=== PATIENT | male | born 1995 | race African-American/Black ===

== ENCOUNTER → 2018-11-12 | Outpatient (CLI) | payer BC ==
[~2018-11-12] MED LIST: HUMALOG100 UNIT/1 SUBQ; LANTUS100 UNIT/M SUBQ
--- NOTE | 2018-11-12 13:00 | 2DMMODE ---
[facility] [place] [address] 2 D/M-MODE ECHOCARDIOGRAM Name: ASHOK CALVERT JR Room #: REG [facility]#: [id number] ������������� Admission: 11/12/18 ������������� Attend Phys: Brannon Vicente Discharge: ��� ������������� ��� Date of : 89 Date of Service: 11/12/18 1300 �� Report #: [id number] �������� ��������������������������������������������[id number] THIS REPORT FOR: //name// APPROVED REPORT Study performed: 11/12/2018 12:29:04 EXAM: Comprehensive 2D, Doppler, and color-flow Echocardiogram Patient Location: Out-Patient Status: routine BSA: 2.06 HR: 91 bpm BP: 126/90 mmHg Rhythm: NSR Other Information Study Quality: Good Indications Palpitations Tachycardia 2D Dimensions RVDd: 32.49 mm IVSd: 10.78 (7-11mm) LVOT Diam: 21.51 (18-24mm) LVDd: 42.06 mm PWd: 10.60 (7-11mm) LVDs: 28.75 (25-40mm) Aortic Root: 33.16 mm Volumes Left Atrial Volume (Systole) Single Plane 4CH: 32.71 mL Single Plane 2CH: 40.40 mL LA ESV Index: 19.00 mL/m2 Aortic Valve AoV Peak Michel.: 1.12 m/s AO Peak Gr.: 5.02 mmHg LVOT Max P.54 mmHg LVOT Max V: 1.07 m/s HONEY Vmax: 3.45 cm2 Mitral Valve E/A Ratio: 0.8 MV Decel. Time: 163.55 ms [facility] [address] [place] [address] 2 D/M-MODE ECHOCARDIOGRAM Name: ASHOK CALVERT JR Room #: REG [facility]#: [id number] ������������� Admission: 11/12/18 ������������� Attend Phys: Brannon Vicente Discharge: ��� ������������� ��� Date of : 89 Date of Service: 11/12/18 1300 �� Report #: [id number] �������� ��������������������������������������������[id number] MV E Max Michel.: 0.61 m/s MV A Michel.: 0.78 m/s MV PHT: 47.43 ms IVRT: 57.67 ms Pulmonary Valve PV Peak Michel.: 1.27 m/s PV Peak Gr.: 6.47 mmHg Tricuspid Valve TR Peak Michel.: 2.21 m/s RAP Estimate: 5.00 mmHg TR Peak Gr.: 19.48 mmHg PA Pressure: 20.00 mmHg Left Ventricle The left ventricle is normal size. Borderline concentric left ventricular hypertrophy. Left ventricular systolic function is normal. LVEF is 65%. Mild diastolic dysfunction is present (impaired relaxation pattern). Right Ventricle The right ventricle is normal size. The right ventricular systolic function is normal. Atria The left atrium size is normal. The right atrium size is normal. Aortic Valve The aortic valve is normal in structure. No aortic regurgitation is present. There is no aortic valvular stenosis. Mitral Valve The mitral valve is normal in structure. There is no mitral valve regurgitation noted. No evidence of mitral valve stenosis. Tricuspid Valve The tricuspid valve is normal in structure. Trace tricuspid regurgitation. Estimated PAP is 20mmHg. Pulmonic Valve Pulmonic valve is not well visualized. There is no pulmonic valvular regurgitation noted. Great Vessels The aortic root is normal in size. Ascending aorta is not well visualized. IVC is normal in size and collapses >50% with [facility] [address] [place] [address] 2 D/M-MODE ECHOCARDIOGRAM Name: ASHOK CALVERT Room #: REG [facility]#: [id number] ������������� Admission: 11/12/18 ������������� Attend Phys: [facility] Discharge: ��� ������������� ��� Date of : 89 Date of Service: 11/12/18 1300 �� Report #: [id number] �������� ��������������������������������������������[id number] inspiration. Pericardium There is no pericardial effusion. <Conclusion> The left ventricle is normal size. LVEF is 65%. The aortic valve is normal in structure. The mitral valve is normal in structure. The tricuspid valve is normal in structure. Trace tricuspid regurgitation. Estimated PAP is 20mmHg. Pulmonic valve is not well visualized. There is no pericardial effusion. ��������������������������������������������� <ELECTRONICALLY SIGNED> ���������������������������������������� By: Sal Kim MD ��������������������������������������������� 11/12/18 1300 99 99 Sal Kim MD /INF
== END ==
LOC: CV 07:08
DX: R00.2 Palpitations (principal); R00.0 Tachycardia, unspecified

== ENCOUNTER → 2019-01-13 | Outpatient (CLI) | payer BC ==
[~2019-01-13] VITALS: Ht 193 cm; Wt 79.8 kg
[2019-01-13 07:26] VITALS: BP 127/92
[2019-01-13 07:33] LABS: ABSOLUTE NEUTROPHILS 2.8 thou/uL (1.4-8.2); BASOPHILS 0.7 % (0.0-2.0); EOSINOPHILS 3.8 % (0.0-3.0); HEMATOCRIT 43.6 % (42.0-52.0); HEMOGLOBIN 14.7 gm/dL (14.0-18.0); LYMPHOCYTES 29.1 % (24.0-44.0); MCH 27.5 pg (26.0-34.0); MCHC 33.6 g/dL (28.0-37.0); MCV 81.9 fL (80.0-100.0); PLATELET COUNT 197 thou/uL (150-400); POLYS 56.4 % (36.0-66.0); RBC 5.33 mil/uL (4.50-6.00); RDW 12.6 % (10.5-14.5)
[2019-01-13 07:45] LABS: CALCIUM 8.8 mg/dL (8.5-10.1); CREATININE 0.8 mg/dL (0.7-1.3); POTASSIUM 3.9 mmol/L (3.5-5.1)
[2019-01-13 07:47] LABS: APTT 23.5 Seconds (24.5-32.8); PROTIME 10.7 Seconds (9.3-11.4)
[2019-01-13 07:51] LABS: TOTAL BILIRUBIN 2.8 mg/dL (<0.1-1.0); TOTAL PROTEIN 6.9 g/dL (6.4-8.2)
--- NOTE | 2019-01-23 14:14 | P ---
[facility] [place] [address] PROCEDURE REPORT Name: ASHOK CALVERT JR [facility] [id number] Admission: 01/13/19 ������������������ Attend Phys: Brannon Vicente MD Discharge: ������������������ Date of : [birth year] Report #: [id number] THIS REPORT FOR: //name// CC: Brannon Borja PREOPERATIVE DIAGNOSIS: Supraventricular tachycardia. POSTOPERATIVE DIAGNOSIS: Typical atrioventricular arnel reentrant tachycardia. PROCEDURES PERFORMED: 1. SVT ablation, CPT code 61059. 2. EP with left atrial pacing and recording, CPT code 49425. 3. Program stimulation and pacing after IV drug infusion, CPT code 45268. 4. 3D mapping, CPT code 91542. HISTORY: The patient is a 23-year-old with palpitations with documented SVT on a recent monitoring specialist. ANESTHESIA: The patient underwent MAC anesthesia with no anesthesia or early complications. PROCEDURE: The patient underwent informed consent. We discussed the details of the procedure including the risks, which include but not limited to bleeding, vascular damage, cardiac perforation, stroke, IL as well as damage to the eagle conduction system requiring permanent pacemaker. The patient was brought to the EP laboratory in a fasting and sedated state and prepped and draped in a sterile fashion. I injected lidocaine to the bilateral groins. Obtained access to the bilateral femoral veins placing an 8 and 6-Zimbabwean short sheath in the right femoral vein, a 6 and 7-Zimbabwean short sheath in the left femoral vein. Under fluoroscopy, I placed 3 quadripolar catheters at the HRA, His, and RV positions and a Decapolar catheter was easily placed in the coronary sinus, which was utilized for left atrial pacing and recording. At baseline, the patient was in sinus rhythm with a sinus cycle length of 710 milliseconds, AZ interval 150 milliseconds, QRS duration 75 milliseconds, QT interval 367 milliseconds, AH interval 90 milliseconds, HV interval 38 milliseconds. Next, atrial burst pacing was performed and AV block was noted at 490 milliseconds. With atrial burst pacing, there was clear evidence that he had jumped to a slow pathway with a long AH interval. Single atrial extrastimuli were delivered and atrial ERP was noted at 350 milliseconds at [address] cycle length. Ventricular pacing was performed and VA block was noted at 380 milliseconds. VA ERP was noted at 340 milliseconds at [address] cycle length. VA conduction was midline and decremental. Isoproterenol infusion was initiated at 2 mcg per minute. AV block was noted at 290 milliseconds. There were AV arnel echoes noted at [address] [facility] [address] [place] [address] PROCEDURE REPORT Name: ASHOK CALVERT Room #: REG [facility] MikalSaul#: [id number] Admission: 01/13/19 ������������������ Attend Phys: Brannon Vicente MD Discharge: ������������������ Date of : [birth year] Report #: [id number] milliseconds at [address] cycle length. Double atrial extrastimuli were delivered and no SVT was induced. VA block was less than 250 on Isuprel and ventricular ERP was 190 milliseconds at [address] cycle length. Next, I increased his isoproterenol to 4 mcg per minute and with atrial burst pacing, the patient went into SVT at 300 milliseconds with a septal VA time of 35 milliseconds. Ventricular entrainment was performed and there was a VAHV response consistent with typical AV arnel reentrant tachycardia. Atrial extrastimuli were delivered and atrial ERP was noted at 180 milliseconds at [address] cycle length. Of note, I induced AVNRT three times with atrial burst pacing maneuvers. 3D MAPPING AND ABLATION: Next, I removed my HRA catheter and placed an SR0 sheath and a 4-mm Biosense Simon ablation catheter into the right atrium and created a detailed 3D geometry of the right atrium with specific emphasis of the His bundle, slow pathway region and a coronary sinus ostium. A total of 7 ablation lesions were performed. Ablation was performed at 50 rueda and 55 degrees. The first two lesions did not result in any junctionals. Lesions 3, 4 and 5 resulted in nice slow junctionals and I performed 2 additional lesions that were slightly higher than my prior ablation lesions, but there is no junctionals at this site. As such an EP study was performed. POST-ABLATION TESTING: Post-ablation, the patient was in sinus rhythm. Atrial burst pacing was performed and AV block was noted at 490 milliseconds. AV arnel ERP was noted at 410 milliseconds at [address] cycle length. Isoproterenol infusion was then reinitiated at 4 mcg per minute. AV block was noted at 240 milliseconds. Atrial ERP was noted at 190 milliseconds at a [address] cycle length. With aggressive atrial and ventricular pacing maneuvers, the patient was no longer inducible into SVT. Not even single atrial extrastimuli were noted at this point. As such, isoproterenol was turned off. We continued testing and the drugs effect wore off. Post-ablation, he remained in sinus rhythm with sinus cycle length of 625 milliseconds, AZ interval 150 milliseconds, QRS duration 75 milliseconds, QT interval 330 milliseconds, AH interval 85 milliseconds, and HV interval of 45 milliseconds. As such, all catheters and sheaths were pulled. Hemostasis was obtained and the patient awoke neurologically and hemodynamically intact. CONCLUSIONS: 1. Successful ablation of typical AV arnel reentrant tachycardia. 2. Normal SA arnel function. 3. Normal AV arnel function. [facility] [address] [place] [address] PROCEDURE REPORT Name: ASHOK CALVERT JR [facility]: [facility] [id number] Admission: 01/13/19 ������������������ Attend Phys: Brannon Vicente MD Discharge: ������������������ Date of : [birth year] Report #: [id number] 4. Normal His-Purkinje function. 5. No other inducible arrhythmias on or off isoproterenol. ��������������������������������������������� <ELECTRONICALLY SIGNED> ���������������������������������������� By: Brannon Vicente MD ��������������������������������������������� 01/23/19 1414 [id number] [id number] Brannon Vicente MD /nt
== END | disposition home or self-care (01) ==
LOC: CATH 06:50
PROVIDERS: Internal Medicine Cardiovascular Disease
DX: I47.1 Supraventricular tachycardia (principal); R00.2 Palpitations; E11.9 Type 2 diabetes mellitus without complications; J45.909 Unspecified asthma, uncomplicated; Z98.41 Cataract extraction status, right eye; Z98.890 Other specified postprocedural states; Z79.4 Long term (current) use of insulin; Z79.899 Other long term (current) drug therapy
CPT/HCPCS: 62110; 62900; 70005

== ENCOUNTER 2020-07-29 13:01 | Emergency (ER) | payer OTHER ==
[~2020-07-29] VITALS: Ht 193 cm; Wt 104.3 kg
[~2020-07-29 13:01] MED LIST changes: +ADDERALL 20 MG20 MG PO
[2020-07-29 17:07] LABS: ABSOLUTE NEUTROPHILS 4.9 thou/uL (1.4-8.2); BASOPHILS 0.9 % (0.0-2.0); EOSINOPHILS 1.1 % (0.0-3.0); HEMATOCRIT 42.6 % (42.0-52.0); HEMOGLOBIN 14.2 gm/dL (14.0-18.0); LYMPHOCYTES 23.4 % (24.0-44.0); MCHC 33.4 g/dL (28.0-37.0); MCV 83.8 fL (80.0-100.0); MONOCYTES 7.8 % (1.0-8.0); PLATELET COUNT 246 thou/uL (150-400); POLYS 66.8 % (36.0-66.0); RBC 5.08 mil/uL (4.50-6.00); RDW 13.3 % (10.5-14.5); WBC 7.3 thou/uL (4.0-11.0)
[2020-07-29 17:17] LABS: CALCIUM 9.2 mg/dL (8.5-10.1); CREATININE 0.8 mg/dL (0.7-1.3); POTASSIUM 3.5 mmol/L (3.5-5.1)
[2020-07-29 17:23] LABS: ALBUMIN 4.3 g/dL (3.4-5.0); TOTAL BILIRUBIN 1.5 mg/dL (0.2-1.0); TOTAL PROTEIN 7.4 g/dL (6.4-8.2)
[2020-07-29 19:51] LABS: URINE BILIRUBIN NEGATIVE (Negative); URINE BLOOD NEGATIVE (Negative); URINE CLARITY CLEAR; URINE COLOR YELLOW; URINE GLUCOSE-RANDOM* NEGATIVE (Negative); URINE KETONES NEGATIVE (Negative); URINE LEUKOCYTES-REFLEX NEGATIVE (Negative); URINE NITRITE-REFLEX NEGATIVE (Negative); URINE PROTEIN (DIPSTICK) NEGATIVE (Negative); URINE UROBILINOGEN 0.2 E.U./dl (0.2-1.0)
[2020-07-29 20:25] VITALS: BP 131/83
== END 2020-07-29 20:27 | disposition home or self-care (01) ==
LOC: ER 13:01
PROVIDERS: Physician Assistant
DX: R11.2 Nausea with vomiting, unspecified (principal); Z20.828 Contact with and (suspected) exposure to other viral communicable diseases; R19.7 Diarrhea, unspecified; J45.909 Unspecified asthma, uncomplicated; E11.9 Type 2 diabetes mellitus without complications; Z79.4 Long term (current) use of insulin; Z79.899 Other long term (current) drug therapy; Z91.09 Other allergy status, other than to drugs and biological substances

== ENCOUNTER 2020-11-23 07:27 | Inpatient (IN) | payer OTHER ==
[2020-11-23] VITALS (8 sets, daily range): BP systolic 124–147; BP diastolic 59–89
[~2020-11-23] VITALS: Ht 193 cm; Wt 103.0 kg
[2020-11-23 08:27] LABS: ABSOLUTE NEUTROPHILS 6.7 thou/uL (1.4-8.2); BASOPHILS 0.9 % (0.0-2.0); HEMOGLOBIN 16.5 gm/dL (14.0-18.0); LYMPHOCYTES 14.1 % (24.0-44.0); MCH 29.4 pg (26.0-34.0); MCHC 35.1 g/dL (28.0-37.0); MCV 83.9 fL (80.0-100.0); MONOCYTES 4.9 % (1.0-8.0); POLYS 78.1 % (36.0-66.0); RDW 12.5 % (10.5-14.5); WBC 8.5 thou/uL (4.0-11.0)
[2020-11-23 08:49] LABS: URINE BILIRUBIN NEGATIVE (Negative); URINE BLOOD NEGATIVE (Negative); URINE CLARITY CLEAR; URINE COLOR YELLOW; URINE GLUCOSE-RANDOM* 3+ (Negative); URINE KETONES 2+ (Negative); URINE LEUKOCYTES-REFLEX NEGATIVE (Negative); URINE NITRITE-REFLEX NEGATIVE (Negative); URINE PROTEIN (DIPSTICK) NEGATIVE (Negative); URINE UROBILINOGEN 0.2 E.U./dl (0.2-1.0)
[2020-11-23 09:19] LABS: PLATELET COUNT 246 thou/uL (150-400); PLATELET ESTIMATE NORMAL
[2020-11-23 09:50] LABS: HCO3 23.4 mmol/L (22.0-26.0); PCO2 46.6 mmHg (35.0-45.0); PO2 82.5 mmHg (80.0-100.0); pH 7.319 (7.360-7.450); sO2 95.3 % (92.0-98.0)
[2020-11-23 09:59] LABS: POTASSIUM 4.6 mmol/L (3.5-5.1)
[2020-11-23 10:38] LABS: ALBUMIN 3.8 g/dL (3.4-5.0); CALCIUM 7.4 mg/dL (8.5-10.1); CREATININE 0.6 mg/dL (0.7-1.3); TOTAL BILIRUBIN 0.8 mg/dL (0.2-1.0); TOTAL PROTEIN 6.6 g/dL (6.4-8.2)
[2020-11-23 15:48] LABS: MAGNESIUM 2.1 mg/dL (1.8-2.4); PHOSPHORUS 3.6 mg/dL (2.6-4.7)
--- NOTE | 2020-11-23 15:48 | NUR ---
ATTEMPTED TO CALL ICU #[id number] MARISA GRAHAM TWICE, NO ANSWER, TO NOTIFY NO WALLET IN ROOM AND TO HAVE PAITENT CALL FIANCE.
--- NOTE | 2020-11-23 17:55 | NUR ---
PT ARRIVED TO ICU VIA STRETCHER FROM ER AT APPROXIMATELY 1545. PT ASSISTED TO BED. CONTINUOUS CARDIAC AND SPO2 MONITORING INITIATED W/ ICU VITAL SIGNS IN PROGRESS. PT AFEBRILE. PT DENIES ANY DISCOMFORT AT THIS TIME. PT STATES, "I THINK MY WALLET FELL OFF THE STRETCHER." ER NURSE DELIVERING PT STATED THAT SHE WOULD LOOK FOR THE WALLET ON THE WAY BACK TO THE ER AND CHECK PT'S ER ROOM AND CALL BACK.
[2020-11-24 01:47] VITALS: BP 134/78
[2020-11-24 02:06] LABS: GLYCOHEMOGLOBIN (HGB A1C) 10.2 % (4.8-5.6)
[2020-11-24 05:44] LABS: CALCIUM 8.2 mg/dL (8.5-10.1); CREATININE 0.8 mg/dL (0.7-1.3)
[2020-11-24 06:11] LABS: POTASSIUM 3.2 mmol/L (3.5-5.1)
[2020-11-24 08:15] VITALS: BP 132/79
--- NOTE | 2020-11-24 11:22 | NUR ---
Nutrition: pt admitted with DKA, seen per dx. BG [phone], A1C 10.2. Per chart review, pt ran out of insulin recently and has not taken. CM assisted with obtaining insulin til next endocrinology appointment. BG generally well controlled with insulin pump per physician. Pt voices no education needs related to diet. Relatively stable weights and good appetite reported. Pt voiced lactose intolerance. Will update diet order. Plans to D/C today.
[2020-11-24] MEDS ORDERED: HUMALOG100 UNIT/1 TRANSDERM (11:32)
[2020-11-24 11:40] VITALS: BP 132/79
--- NOTE | 2020-11-24 12:31 | NUR ---
ALERT AND ORIENTED AND VITALS STABLE, DENIES PAIN AND NAUSEA. TOLERATING DIET. INSULIN GTT PER DKA PROTOCOL AND POTASSIUM REPLACED. ORDERS DC HOME RECEIVED AND DR. DING ORDERS FOR INSULIN SENT TO PATIENT'S PHARMACY. PATIENT ASKING WHETHER WE FOUND HIS WALLET WHICH HE REPORTED MISSING UPON ARRIVAL TO ICU YESTERDAY. I CALLED E.D. AND PUBLIC SAFETY DEPARTMENT AND IT HAS NOT BEEN TURNED IN THERE. I CALLED THE [employer] WHO ADVISED TO CALL ABDIRAHMAN, I CALLED ABDIRAHMAN'S OFFICE AND LEFT A MESSAGE AND ALSO NOTIFIED CHARGE NURSE SORAYA. PATIENT IS BEING DISCHARGED AND I WILL PROVIDE HIM WITH ABDIRAHMAN'S TELEPHONE NUMBER TO FOLLOW UP WITH HIM IN THIS REGARD.
--- NOTE | 2020-11-24 12:40 | NUR ---
discussed during los, lavinia today with refill for insulin and has new endocrine md visit coming up. discussed during am round lavinia today and has follow up appointment in december 2020.
--- NOTE | 2020-11-24 13:09 | NUR ---
DC INSTRUCTIONS AND FOLLOW UP PHONE NUMBERS GIVEN TO PATIENT AND GIRLFRIEND, NO QNS AT THIS TIME. IV DC'D AND PATIENT WILL BE TAKEN BY WHEEL CHAIR TO EXIT BY [facility].
== END 2020-11-24 13:30 | disposition home or self-care (01) | DRG 639 ==
LOC: ER 07:27 → ICU 11:59 → EROBS 11:59 → ICU 15:50
PROVIDERS: Emergency Medicine; ADMIT Hospitalist; ATTEND Hospitalist
DX: E10.10 Type 1 diabetes mellitus with ketoacidosis without coma (principal); J45.909 Unspecified asthma, uncomplicated; F12.90 Cannabis use, unspecified, uncomplicated; Z98.41 Cataract extraction status, right eye; Z79.4 Long term (current) use of insulin; Z79.899 Other long term (current) drug therapy; Z87.891 Personal history of nicotine dependence
CPT/HCPCS: 10078